=== PATIENT | male | born 1960 | race Caucasian/White ===

== ENCOUNTER 2022-01-14 07:33 | Observation (INO) | payer OTHER, SELFPAY ==
[2022-01-14] VITALS (20 sets, daily range): BP systolic 109–141; BP diastolic 69–90; PULSE 58–76; RESP 9–21; TEMP 36.6–36.8; O2SAT 96–100; BMI 26.6; BMI 26.9
--- NOTE | 2022-01-14 07:33 | ECG_ITS ---
APPROVED REPORT Exam: Resting ECG HR:66 bpm ECG Measurements Heart Rate 66 AXES VT 161 P 66 QRSd 88 QRS 49 QT 389 T 55 QTc 402 Conclusion SINUS RHYTHM WITH SINUS ARRHYTHMIA NORMAL ECG UNCONFIRMED REPORT Electronically signed by : Donald Vega MD 01/17/2022 21:11:48
--- NOTE | 2022-01-14 07:47 | XR_ITS ---
PROCEDURE INFORMATION: Exam: XR Chest Exam date and time: 01/14/2022 7:47 AM Age: 61 years old Clinical indication: Other: Syncope / trauma laceration above left eye TECHNIQUE: Imaging protocol: XR of the chest. Views: 1 view. COMPARISON: CT CERVICAL SPINE WO CON 01/14/2022 9:46 AM FINDINGS: Tubes, catheters and devices: Defibrillator pads overlie the left hemithorax. Lungs: Unremarkable. No consolidation. Pleural spaces: Unremarkable. No pleural effusion. No pneumothorax. Heart/Mediastinum: Unremarkable. No cardiomegaly. Bones/joints: Unremarkable. IMPRESSION: No acute cardiopulmonary abnormality.
--- NOTE | 2022-01-14 07:48 | CT_ITS ---
PROCEDURE INFORMATION: Exam: CT Cervical Spine Without Contrast Exam date and time: 01/14/2022 7:48 AM Age: 61 years old Clinical indication: Other: Fall syncope; Additional info: Fall// laceration above left eye into nose TECHNIQUE: Imaging protocol: Computed tomography images of the cervical spine without contrast. Radiation optimization: All CT scans at this facility use at least one of these dose optimization techniques: automated exposure control; mA and/or kV adjustment per patient size (includes targeted exams where dose is matched to clinical indication); or iterative reconstruction. COMPARISON: CT HEAD/BRAIN WO CON 01/14/2022 9:44 AM FINDINGS: Bones/joints: Hypertrophic changes are present involving the dens and anterior arch of C1. Discs/Spinal canal/Neural foramina: Mild right neuroforaminal narrowing C3-C4 and moderate right C4-C5 and C5-C6. Moderate disc space narrowing C5-C6 with small anterior and posterior osteophytes. Lungs: Lung apices are normal. Soft tissues: Unremarkable. IMPRESSION: No evidence of cervical spine fracture. Remainder of findings as described above.
--- NOTE | 2022-01-14 07:48 | CT_ITS ---
PROCEDURE INFORMATION: Exam: CT Head Without Contrast Exam date and time: 01/14/2022 7:48 AM Age: 61 years old Clinical indication: Syncope and collapse; Additional info: Syncope head injury// laceration above left eye into nose TECHNIQUE: Imaging protocol: Computed tomography of the head without contrast. Radiation optimization: All CT scans at this facility use at least one of these dose optimization techniques: automated exposure control; mA and/or kV adjustment per patient size (includes targeted exams where dose is matched to clinical indication); or iterative reconstruction. COMPARISON: No relevant prior studies available. FINDINGS: Brain: Normal. No hemorrhage. Unremarkable white matter. No mass effect. Cerebral ventricles: No ventriculomegaly. Paranasal sinuses: Visualized sinuses are unremarkable. No fluid levels. Mastoid air cells: Visualized mastoid air cells are well aerated. Bones/joints: Unremarkable. No acute fracture. Soft tissues: Moderate soft tissue swelling in the left supraorbital region with soft tissue air compatible with laceration. IMPRESSION: Moderate soft tissue swelling in the left supraorbital region with soft tissue air compatible with laceration but no evidence of acute intracranial pathology.
[2022-01-14 07:53] LABS: Basophils % 0.9 % (0.1-2.0); Eosinophils # 0.1 K/mm3 (0.0-0.4); Eosinophils % 2.3 % (0.1-12.0); Hematocrit 34.6 % (42.0-52.0); Hemoglobin 11.2 g/dL (14.1-18.0); Lymphocytes # 1.7 K/mm3 (0.7-4.5); Lymphocytes % 33.1 % (10-50); Mean Corpuscular HGB Conc 32.3 g/dL (31.8-35.4); Mean Corpuscular Hemoglobin 33.1 pg (27.0-31.2); Mean Corpuscular Volume 102.4 fl (80-94); Mean Platelet Volume 8.9 fl (7.4-10.4); Monocytes # 0.2 K/mm3 (0.1-1.0); Monocytes % 3.8 % (1.7-9.3); Neutrophils # 3.1 K/mm3 (1.8-7.8); Platelet Count 221 K/mm3 (142-424); Red Blood Count 3.38 M/mm3 (4.60-6.20); Red Cell Distribution Width 13.8 % (11.5-17.5); White Blood Count 5.1 K/mm3 (4.8-10.8)
[2022-01-14 08:00] LABS: Chloride 105 mmol/L (98-107); Sodium 132 mmol/L (136-145)
[2022-01-14 08:01] LABS: Potassium 5.3 mmoL/L (3.5-5.1)
[2022-01-14 08:03] LABS: Alanine Aminotransferase 20 U/L (12-78); Albumin Level 3.8 g/dl (3.5-5.0); Alkaline Phosphatase 41 U/L (38-126); Aspartate Amino Transferase 27 U/L (17-59); Bilirubin,Total 0.6 mg/dl (0.2-1.3); Blood Urea Nitrogen 39 mg/dl (9-20); Creatinine Clearance Estimated 88 mL/min (50-200); Estimated Glomerular Filt Rate 76 ml/min (>60); GFR (African American) 92 ML/MIN (>60)
[2022-01-14 08:04] LABS: Albumin/Globulin Ratio 1.4 (1.1-1.8); Anion Gap 8.3 mEq/L (5-15); Calcium 7.9 mg/dl (8.4-10.2); Carbon Dioxide 24 mmol/L (22.0-30.0); Globulin 2.7 g/dL (1.3-3.2); Glucose 162 mg/dl (74-100); Total Protein,Serum 6.5 g/dl (6.3-8.2)
--- NOTE | 2022-01-14 08:16 | HMH.EDSYNC ---
ED Disposition Clinical Impression: Syncope and collapse, Bradycardia Disposition: Admitted As Inpatient Condition on Discharge: Good Time of Disposition: 11:30 - Critical Care Critical Care Time: Yes Attestation: On 01/14/22, the high probability of a clinically significant, sudden or life threatening deterioration of the following system(s) required my full and direct attention, intervention and personal management. The time I documented below is in addition to time spent performing reported procedures but includes the following listed in this critical care notation. Total Critical Care Time: 30 Vital system(s) involved:: Circulatory Failure My critical care processes included: Assessment & monitoring of V/S, Initial and Re-exams, Data Review/Interpretation, Coordinating Care Medical Decision Making - Medical Records Medical records reviewed: Yes: I reviewed the patient's medical records. - Wilver Inquiry Pt receiving controlled substance: No Vital Signs: 01/14/22 07:39 01/14/22 08:00 01/14/22 08:02 Temperature 98 F Temperature Source Oral Pulse Rate 59 L Pulse Rate [Orthostatic Lying] 60 Pulse Rate [Orthostatic Standing] 76 Pulse Rate [Radial] 66 Respiratory Rate 16 12 Blood Pressure 116/77 Blood Pressure [Orthostatic Lying] 129/90 Blood Pressure [Orthostatic Standing] 113/87 Blood Pressure [Right Arm] 129/90 Blood Pressure Mean Blood Pressure Mean [Right Arm] 103 Blood Pressure Position [Right Arm] Sitting 02 Sat by Pulse Oximetry 98 99 Oxygen Delivery Method Room Air Room Air 01/14/22 08:30 01/14/22 09:30 01/14/22 10:00 Temperature Temperature Source Pulse Rate 63 58 L 58 L Pulse Rate [Orthostatic Lying] Pulse Rate [Orthostatic Standing] Pulse Rate [Radial] Respiratory Rate 9 L 13 13 Blood Pressure 109/69 L 124/83 128/79 Blood Pressure [Orthostatic Lying] Blood Pressure [Orthostatic Standing] Blood Pressure [Right Arm] Blood Pressure Mean 101 102 Blood Pressure Mean [Right Arm] Blood Pressure Position [Right Arm] 02 Sat by Pulse Oximetry 100 100 100 Oxygen Delivery Method Room Air 01/14/22 10:30 01/14/22 11:00 01/14/22 11:30 Temperature Temperature Source Pulse Rate 60 59 L 64 Pulse Rate [Orthostatic Lying] Pulse Rate [Orthostatic Standing] Pulse Rate [Radial] Respiratory Rate 13 11 L 11 L Blood Pressure 131/82 126/79 133/75 Blood Pressure [Orthostatic Lying] Blood Pressure [Orthostatic Standing] Blood Pressure [Right Arm] Blood Pressure Mean Blood Pressure Mean [Right Arm] Blood Pressure Position [Right Arm] 02 Sat by Pulse Oximetry 100 100 100 Oxygen Delivery Method Room Air Room Air Room Air - Lab Data Lab results reviewed: Yes: I reviewed the patient's lab results. Lab Results 01/14/22 07:44: WBC 5.1, RBC 3.38 L, Hgb 11.2 L, Hct 34.6 L, MCV 102.4 H, MCH 33.1 H, MCHC 32.3, RDW 13.8, Plt Count 221, MPV 8.9, Neut % (Auto) 60.0, Lymph % (Auto) 33.1, [place] % (Auto) 3.8, Eos % (Auto) 2.3, Baso % (Auto) 0.9, Neut # (Auto) 3.1, Lymph # (Auto) 1.7, [place] # (Auto) 0.2, Eos # (Auto) 0.1, Baso # (Auto) 0.0 01/14/22 07:44: Sodium 132 L, Potassium 5.3 H, Chloride 105, Carbon Dioxide 24, Anion Gap 8.3, BUN 39 H, Creatinine 1.00, Estimated Creat Clear 88, Estimated GFR 76, Est GFR ( Amer) 92, Glucose 162 H, Calcium 7.9 L, Total Bilirubin 0.6, AST 27, ALT 20, Alkaline Phosphatase 41, Troponin I < 0.01, Total Protein 6.5, Albumin 3.8, Globulin 2.7, Albumin/Globulin Ratio 1.4 01/14/22 08:48: POC Glucose 150 H 01/14/22 11:00: Troponin I < 0.01 Result diagrams: 01/14/22 07:44 01/14/22 07:44 Orders (Tests/Meds): ORDERS Category Date Time Status CBC [Complete Blood Count Auto Diff] Routine Lab 01/14/22 11:55 Received Troponin I Q3H Lab 01/14/22 14:00 Ordered Medical Decision Narrative: Mr. Bunny Hauser is a 61 yo male w/ PMH for HTN (Losartan) who presents to the ED w/ syncope and
[2022-01-14 08:35] LABS: Troponin I < 0.01 ng/ml (0.00-0.034)
--- NOTE | 2022-01-14 08:47 | ECG_ITS ---
APPROVED REPORT Exam: Resting ECG HR:59 bpm ECG Measurements Heart Rate 59 AXES OH 167 P 64 QRSd 84 QRS 54 QT 411 T 53 QTc 410 Conclusion SINUS BRADYCARDIA BORDERLINE ECG UNCONFIRMED REPORT Electronically signed by : Donald Vega MD 01/17/2022 21:11:30
[2022-01-14 08:54] LABS: POC Glucose,Bedside 150 (70-110)
--- NOTE | 2022-01-14 09:14 | HMH.ITSTN ---
came to get patient for CT at 8am-- was being stitched for laceration by ER Dr // came back at 8:30 patient had another syncope episode and heart rate dropped. Holding till nurse can go with patient on monitor
--- NOTE | 2022-01-14 10:39 | PC.NURSE ---
Called blanker press operator to get whoever is labor commissioner for service. stated it was Dr. Vasquez. Awaiting call back at this time.
--- NOTE | 2022-01-14 11:05 | PC.NURSE ---
Dr. Vasquez called back to ED. Speaking with Dr. Burns at this time.
--- NOTE | 2022-01-14 11:08 | PC.NURSE ---
Spoke with transformer shop supervisor about inpatient admission at this time.
--- NOTE | 2022-01-14 11:20 | PC.NURSE ---
Spoke to rachel and relayed the message that is wanting to speak with .
--- NOTE | 2022-01-14 11:52 | PC.NURSE ---
lab is bedside
--- NOTE | 2022-01-14 12:00 | PC.NURSE ---
came out to the desk stating that her had to urinate, urinal was given but he stated that he didn't need assistance with holding urinal. also requested ice chips. Very small amount of ice chips were given to patient. assisting patient use urinal at this time.
--- NOTE | 2022-01-14 12:05 | PC.NURSE ---
ATTEMPTED TO CALL REPORT CHARGE NURSE IS IN THE DIRECTOR OF PHYSICAL SECURITY DOING COMPRESSIONS SO WE DON'T KNOW WHO WILL BE GETTING THAT PT. THEY WILL HAVE TO CALL YOU BACK
[2022-01-14 12:09] LABS: Basophils % 0.4 % (0.1-2.0); Eosinophils % 0.2 % (0.1-12.0); Hematocrit 33.9 % (42.0-52.0); Hemoglobin 10.9 g/dL (14.1-18.0); Lymphocytes # 0.8 K/mm3 (0.7-4.5); Lymphocytes % 9.1 % (10-50); Mean Corpuscular HGB Conc 32.2 g/dL (31.8-35.4); Mean Corpuscular Hemoglobin 33.3 pg (27.0-31.2); Mean Corpuscular Volume 103.3 fl (80-94); Monocytes # 0.3 K/mm3 (0.1-1.0); Monocytes % 3.1 % (1.7-9.3); Neutrophils # 7.8 K/mm3 (1.8-7.8); Neutrophils % 87.1 % (37.0-80.0); Platelet Count 186 K/mm3 (142-424); Red Blood Count 3.28 M/mm3 (4.60-6.20); Red Cell Distribution Width 13.6 % (11.5-17.5)
[2022-01-14 12:11] LABS: Troponin I < 0.01 ng/ml (0.00-0.034)
--- NOTE | 2022-01-14 12:44 | PC.NURSE ---
COVID swab collected and sent to the lab
--- NOTE | 2022-01-14 13:05 | PC.NURSE ---
REPORT CALLED TO FLOOR
[2022-01-14 13:11] LABS: Coronavirus 19, PCR Not Detected (NotDetected); Influenza A, PCR Not Detected (NotDetected); Influenza B, PCR Not Detected (NotDetected)
[2022-01-14 14:22] LABS: MANUAL DIFFERENTIAL MANUAL DIFFERENTIAL (MANUAL DIFF)
--- NOTE | 2022-01-14 14:50 | PC.NURSE ---
pt sitting in bed with bedside, awaiting to be taken upstairs to inpatient room. Nothing needed at this time. Call light within reach.
[2022-01-14 15:03] LABS: Troponin I < 0.01 ng/ml (0.00-0.034)
--- NOTE | 2022-01-14 15:07 | PC.NURSE ---
Med-Surg staff down here to take patient to their inpatient room.
--- NOTE | 2022-01-14 15:13 | PC.NURSE ---
Pt arrived to the floor at this time
[2022-01-14 15:32] LABS: Alanine Aminotransferase 21 U/L (12-78); Albumin Level 3.9 g/dl (3.5-5.0); Albumin/Globulin Ratio 1.6 (1.1-1.8); Alkaline Phosphatase 50 U/L (38-126); Anion Gap 9.4 mEq/L (5-15); Aspartate Amino Transferase 28 U/L (17-59); Bilirubin,Total 0.5 mg/dl (0.2-1.3); Blood Urea Nitrogen 33 mg/dl (9-20); Calcium 8.6 mg/dl (8.4-10.2); Carbon Dioxide 26 mmol/L (22.0-30.0); Chloride 106 mmol/L (98-107); Creatinine Clearance Estimated 88 mL/min (50-200); Estimated Glomerular Filt Rate 98 ml/min (>60); GFR (African American) 119 ML/MIN (>60); Globulin 2.5 g/dL (1.3-3.2); Glucose 107 mg/dl (74-100); Potassium 4.4 mmoL/L (3.5-5.1); Sodium 137 mmol/L (136-145); Total Protein,Serum 6.4 g/dl (6.3-8.2)
[2022-01-14 18:09] LABS: Lymphocytes % 8 % (10-50); Neutrophils % 89 % (42-76); Platelet Estimate Normal; RBC Morphology Normal; Total Cells Counted 100
[2022-01-15] VITALS: BP 130/58; PULSE 65; PULSE 68; RESP 19; TEMP 36.7; O2SAT 99
[2022-01-15 04:00] VITALS: BP 143/85; PULSE 60; PULSE 70; RESP 21; TEMP 36.9; O2SAT 97
[2022-01-15 05:00] VITALS: BMI 27.0
--- NOTE | 2022-01-15 07:14 | HMH.PHAVTE ---
[facility] Pharmacy VTE Monitoring - Patient Demographics Admission date: 01/14/22 Report Date: 01/15/22 Time: 07:14 Allergies/Adverse Reactions: Patient Allergies No Known Allergies Allergy (Verified 01/14/22 07:45) Height: 1.75 m Weight: 82.781 kg Patient Problems: Current Active Problems Syncope and collapse (Acute) Bradycardia (Acute) - VTE Risk Labs: VTE Related Lab Results Hgb 10.9 g/dL (14.1-18.0) L 01/14/22 11:55 Hct 33.9 % (42.0-52.0) L 01/14/22 11:55 Plt Count 186 K/mm3 (142-424) 01/14/22 11:55 BUN 33 mg/dl (9-20) H 01/14/22 14:30 Creatinine 0.80 mg/dl (0.66-1.25) 01/14/22 14:30 Estimated Creat Clear 88 mL/min (50-200) 01/14/22 14:30 VTE Score: 1 VTE Risk Level: Very Low Risk - Prophylaxis VTE Prophylaxis Ordered?: Yes Types of VTE Prophylaxis: TEDS Knee High Location of Applied Device: Bilateral Lower Extremeties, Not Applicable
--- NOTE | 2022-01-15 07:14 | HMH.PHAINT ---
MEDICATION RECONCILIATION COMPLETED ON PATIENT USING EXTERNAL FILL HISTORY FROM PHARMACY. -SHASTA SALAS, SACHAD
[2022-01-15 07:56] VITALS: O2SAT 95
[2022-01-15 08:00] VITALS: BP 124/70; PULSE 68; PULSE 80; RESP 18; TEMP 37.1; O2SAT 98
--- NOTE | 2022-01-15 08:10 | PC.NURSE ---
notified cardiology of consult
--- NOTE | 2022-01-15 08:34 | HMH.HP ---
*Admission Date: 01/14/22 <Juliette Melendez - 01/15/22 08:39> *Chief complaint: Syncope; bradycardia <Juliette Melendez - 01/15/22 08:39> *History of present illness: HPI narrative: Mr. Hollis is a 61 yo male w/ PMH for HTN (Losartan) who presents to the ED for syncope. Patient reports he went to restroom, he had not started having a bowel movement yet, and he passed out. He denies any prodrumal symptoms such as dizziness, lightheadedness, dyspnea, chest pain, heart palpitations etc. However patients son reports he has felt nauseous over the last 24 hours. Patient was found by his on the ground with a large laceration near his (L) palpebrae and superficial scalp laceration. Patient denies any numbness, weakness or focal deficits at this time. He denies any symptoms at this time. No neck pain, chest, abdominal or extremity pain at this time. Patient reports this has never occurred before. No hx of seizures or diabetes. No new medications. No recent illness. Denies prolonged down time. Of note: Patient has another syncopal event in the ED with sinus bradycardia and PAC's. The above as per ER documentation. This a.m. at time of exam patient relates the same history. He states he is usually very healthy and active. He feels that he eats healthy as well. His PCP is in [facility] where he resides. He visits his farm in the [facility] [place] on the weekends. .With evaluation in the emergency room chest x-ray revealed no acute cardiopulmonary abnormality. CT of the cervical spine revealed no fractures and some degenerative disc issues. CT of the head showed moderate soft tissue swelling in the left supraorbital region with soft tissue air compatible with laceration but no evidence of acute intracranial pathology. Ppatient had a stable blood pressure. He was afebrile. Heart rate was noted to be in the 50s and 60s. He did have a syncopal episode while in the ER when being sutured. He was noted to bradycardiac down to the 30s and became unconscious. He thus was then admitted for observation and cardiology consult. This a.m. patient did have a stool and noted blood. His states he had a colonoscopy in October 2021 and one polyp was removed. Because of the polyps he has colonoscopies every 5 years. This a.m. he is n.p.o. for cardiology consult. He denies nausea. He has had no diarrhea. He has had no further episodes. Lab data with White blood cell count in the emergency room of 1100 with a hemoglobin of 11.2 hematocrit of 34.6. This a.m. hemoglobin is 10.6 with hematocrit of 33.3. Chemistries revealed a sodium of 132 and potassium of 5.3 and this a.m. electrolytes are normal. BUN is satisfactory. Troponin I's are negative x3. Liver function studies are normal. TSH is 1.83. <MelendezJuliette vivar 01/15/22 13:51> [facility] History Medical History: Reports:: Migraine Denies:: Arrhythmia, Atherosclerotic Heart Disease, Cancer, Chronic Obstructive Pulmonary Disease (COPD), Diabetes Mellitus Type 1, Diabetes Mellitus Type 2, MRSA <Juliette Melendez 01/15/22 13:51> *Have you ever received a pneumonia vaccine?: No <Juliette Melendez 01/15/22 08:39> *Have you received a flu vaccine this season?: Yes <Juliette Melendez 01/15/22 08:39> Amputation: No <Juliette Melendez 01/15/22 08:39> Comment: Oral surgery <Juliette Melendez 01/15/22 08:39> - *Social History Smoking Status: Never smoker <Juliette Melendez 01/15/22 08:39> Alcohol Intake: current <Juliette Melendez 01/15/22 08:39> Alcohol Intake Frequency:: holidays/special occasions only <Juliette Melendez 01/15/22 08:39> *Occupational Status:: retired <Juliette Melendez 01/15/22 08:39> Housing: house <Juliette Melendez 01/15/22 08:39> Household Members: family <Juliette Melendez 01/15/22 08:39> *Travel in the last 8 weeks: None <Juliette Melendez 01/15/22 08:39> Family Hx:: Cancer, Diabetes <Juliette Melendez 01/15/22 08:39> Review of Systems - Constitutional Reports weight gain, Denies fever(s), Denies lack
[2022-01-15 08:56] LABS: Basophils # 0.1 K/mm3 (0-0.2); Basophils % 1.3 % (0.1-2.0); Eosinophils # 0.1 K/mm3 (0.0-0.4); Hematocrit 33.3 % (42.0-52.0); Hemoglobin 10.6 g/dL (14.1-18.0); Lymphocytes % 32.6 % (10-50); Mean Corpuscular HGB Conc 31.8 g/dL (31.8-35.4); Mean Corpuscular Volume 103.7 fl (80-94); Mean Platelet Volume 8.1 fl (7.4-10.4); Monocytes # 0.3 K/mm3 (0.1-1.0); Monocytes % 4.4 % (1.7-9.3); Neutrophils # 3.7 K/mm3 (1.8-7.8); Neutrophils % 60.7 % (37.0-80.0); Platelet Count 200 K/mm3 (142-424); Red Blood Count 3.21 M/mm3 (4.60-6.20); White Blood Count 6.1 K/mm3 (4.8-10.8)
--- NOTE | 2022-01-15 09:30 | HMH.CNCARD ---
History of Present Illness Consult date: 01/15/22 Requesting physician: Yaya Norton Chief complaint: syncope History of present illness: Mr. Emanuel is a 61-year-old white gentleman who presented to the emergency department with complaints of syncope. The patient reports that he woke up in the middle the night feeling nauseated and felt like he had to go to the bathroom. He states that he was sitting on the toilet and had not yet had a bowel movement but felt like he was going to vomit. He states that he grabbed the trash can and then woke up on the floor with a laceration near his left eye. The patient states that he does not recall having any symptoms prior to the syncopal episode. He denies any chest pain or pressure. He denies any shortness of breath or edema. He denies any fever, chills, PND or orthopnea. The patient came to the emergency department after the syncopal episode and laceration sustained during his syncopal episode. While he was in the emergency department getting his laceration stitched the patient states that he began to feel hot and flushed, nauseated and short of breath and very lightheaded. He had another syncopal episode that was witnessed in the emergency department. He was unconscious for about 10 seconds and he was bradycardic with a heart rate in the 30s. There was no heart block noted but had sinus bradycardia with PACs. This morning the patient states that he feels fine. He does report having a bloody stool this morning. He states that this was the first time he has had a bloody stool. He also reports that maybe his stools have been dark prior to today though but just really did not think too much about it. The patient reports that he lives in [facility] and would like to have the rest of his care in [place] at the [facility]. [facility] History I have reviewed the patient's past medical history: Yes Medical History: Reports:: Hypertension Denies:: Arrhythmia, Atherosclerotic Heart Disease, Cancer, Chronic Obstructive Pulmonary Disease (COPD), Diabetes Mellitus Type 1, Diabetes Mellitus Type 2, MRSA *Have you ever received a pneumonia vaccine?: No *Have you received a flu vaccine this season?: Yes Amputation: No - *Social History Smoking Status: Never smoker Alcohol Intake: current Alcohol Intake Frequency:: holidays/special occasions only *Occupational Status:: retired Housing: house Household Members: family *Travel in the last 8 weeks: None Family Hx:: Cancer, Diabetes Meds Home Medications Medication Instructions Recorded Confirmed Type Losartan/Hydrochlorothiazide 1 each PO DAILY 01/14/22 01/14/22 History [Losartan-Hctz 50-12.5 mg Tab] Allergies Allergy/AdvReac Type Severity Reaction Status Date / Time No Known Allergies Allergy Verified 01/14/22 07:45 Exam Vital signs and Labs for Last 24 Hours: Temp Pulse Resp BP Pulse Ox 98.4 F 70 21 143/85 H 95 01/15/22 04:00 01/15/22 04:00 01/15/22 04:00 01/15/22 04:00 01/15/22 07:56 Laboratory Results - last 24 hr 01/14/22 11:00: Troponin I < 0.01 01/14/22 11:55: WBC 9.0 D, RBC 3.28 L, Hgb 10.9 L, Hct 33.9 L, MCV 103.3 H, MCH 33.3 H, MCHC 32.2, RDW 13.6, Plt Count 186, MPV 9.0, Neut % (Auto) 87.1 H, Lymph % (Auto) 9.1 L, Vance % (Auto) 3.1, Eos % (Auto) 0.2, Baso % (Auto) 0.4, Neut # (Auto) 7.8, Lymph # (Auto) 0.8, Vance # (Auto) 0.3, Eos # (Auto) 0.0, Baso # (Auto) 0.0, Total Counted 100, Neutrophils % (Manual) 89 H, Band Neutrophils % 3.0, Lymphocytes % (Manual) 8 L, Platelet Estimate Normal, RBC Morphology Normal 01/14/22 12:36: SARS-CoV-2 (PCR) Not detected, Influenza A Untype (PCR) Not detected, Influenza Type B (PCR) Not detected 01/14/22 14:30: Troponin I < 0.01 01/14/22 14:30: Sodium 137, Potassium 4.4, Chloride 106, Carbon Dioxide 26, Anion Gap 9.4, BUN 33 H, Creatinine 0.80, Estimated Creat Clear 88, Estimated GFR 98, Est GFR ( Amer) 119 D, Glucose 107 H D, Calcium 8.6, Total Bilirubi
[2022-01-15 09:31] LABS: Thyroid Stimulating Hormone 1.83 uIU/mL (0.465-4.68)
[2022-01-15 12:00] VITALS: PULSE 70
--- NOTE | 2022-01-15 12:54 | HMH.PHAINT ---
Discharge counseling complete. 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
--- NOTE | 2022-01-17 21:41 | HMH.DCSUM ---
General - General Admission date:: 01/14/22 <Yaya Norton - 02/21/22 22:13> 01/14/22 <Jacqueline Herrera - 01/17/22 21:46> Discharge date: 01/15/22 <Jacqueline Herrera - 01/17/22 21:46> HPI HPI: HPI narrative: Mr. Hollis is a 61 yo male w/ PMH for HTN (Losartan) who presents to the ED for syncope. Patient reports he went to restroom, he had not started having a bowel movement yet, and he passed out. He denies any prodrumal symptoms such as dizziness, lightheadedness, dyspnea, chest pain, heart palpitations etc. However patients son reports he has felt nauseous over the last 24 hours. Patient was found by his on the ground with a large laceration near his (L) palpebrae and superficial scalp laceration. Patient denies any numbness, weakness or focal deficits at this time. He denies any symptoms at this time. No neck pain, chest, abdominal or extremity pain at this time. Patient reports this has never occurred before. No hx of seizures or diabetes. No new medications. No recent illness. Denies prolonged down time. Of note: Patient has another syncopal event in the ED with sinus bradycardia and PAC's. The above as per ER documentation. This a.m. at time of exam patient relates the same history. He states he is usually very healthy and active. He feels that he eats healthy as well. His PCP is in [facility] where he resides. He visits his farm in the [facility] [place] on the weekends. .With evaluation in the emergency room chest x-ray revealed no acute cardiopulmonary abnormality. CT of the cervical spine revealed no fractures and some degenerative disc issues. CT of the head showed moderate soft tissue swelling in the left supraorbital region with soft tissue air compatible with laceration but no evidence of acute intracranial pathology. Ppatient had a stable blood pressure. He was afebrile. Heart rate was noted to be in the 50s and 60s. He did have a syncopal episode while in the ER when being sutured. He was noted to bradycardiac down to the 30s and became unconscious. He thus was then admitted for observation and cardiology consult. This a.m. patient did have a stool and noted blood. His states he had a colonoscopy in October 2021 and one polyp was removed. Because of the polyps he has colonoscopies every 5 years. This a.m. he is n.p.o. for cardiology consult. He denies nausea. He has had no diarrhea. He has had no further episodes. Lab data with White blood cell count in the emergency room of 1100 with a hemoglobin of 11.2 hematocrit of 34.6. This a.m. hemoglobin is 10.6 with hematocrit of 33.3. Chemistries revealed a sodium of 132 and potassium of 5.3 and this a.m. electrolytes are normal. BUN is satisfactory. Troponin I's are negative x3. Liver function studies are normal. TSH is 1.83. <Jacqueline Herrera - 01/17/22 21:46> Hospital Course Hospital Course: Cardiology was consulted, but the patient wanted any procedures to be completed in [facility]. The patient had sinus bradycardia with a heart rate of 30s on the monitor and there was no evidence of heart block. He had PACs as well. Given his sinus bradycardia, Dr. Palacios did recommend a permanent pacemaker placement, but the patient declined having this procedure done at [facility]. He wanted to have an anemia work-up and a work-up for the blood in his stool before proceeding with permanent pacemaker placement. He reported he would like for the rest of his care to be done in [facility] at the [facility] where he lives and where the rest of his healthcare providers are located. He had no other bradycardia since admission and cardiology felt it was reasonable to discharge the patient with a 30-day event monitor and have him follow-up with cardiology in [place]. He was discharged home. <Jacqueline Herrera - 01/17/22 21:46> Objective Vital signs: Temp Pulse Resp BP Pulse Ox 98.8 F 70 18 124/70
== END 2022-01-15 13:42 | disposition home or self-care (01) | DRG 125 ==
LOC: ER 08:18 → 2ND 12:35
PROVIDERS: Admitting Provider Family Medicine; Emergency Provider Student in an Organized Health Care Education/Training Program; Visit Provider Family Medicine
DX: S01.112A Laceration without foreign body of left eyelid and periocular area, initial encounter (principal); K92.1 Melena; S01.01XA Laceration without foreign body of scalp, initial encounter; R55 Syncope and collapse; I10 Essential (primary) hypertension; W18.12XA Fall from or off toilet with subsequent striking against object, initial encounter; R00.1 Bradycardia, unspecified; D64.9 Anemia, unspecified; Z20.822 Contact with and (suspected) exposure to COVID-19; Y92.012 Bathroom of single-family (private) house as the place of occurrence of the external cause
CPT/HCPCS: 12013; 36415; 70450; 71045; 72125; 80053; 82962; 84443; 84484; 85007; 85025; 93005; 93270; 93306; 96365; 99285; C9803; G0378; U0003; U0005